=== PATIENT | female | born 1955 | race Caucasian/White ===

== ENCOUNTER 2019-03-18 10:54 | Day surgery (SDC) | payer MEDICARE ==
[~2019-03-18 10:54] MED LIST: KETOROLAC TROMETHAMINE 30 MG/1ML VIAL ONE; LIDOCAINE HCL 2% PF 100MG/5ML VIAL IJ ONE; MIDAZOLAM HCL 2 MG/2 ML VIAL ONE; ONDANSETRON HCL/PF 4 MG/ 2ML VIAL ONE; PROPOFOL 200 MG/20 ML VIAL IV ONE; SEVOFLURANE 250 ML LIQUID IH ONE; ePHEDrine SULFATE 50 MG/1 ML IVP ONE; fentaNYL CITRATE/PF 100 MCG/2 ML INJ. ONE
== END 2019-03-18 13:40 ==
LOC: OPSURG 10:54
PROVIDERS: ATTEND Specialist
DX: M99.05 Segmental and somatic dysfunction of pelvic region (principal); M70.62 Trochanteric bursitis, left hip; M99.06 Segmental and somatic dysfunction of lower extremity; M47.816 Spondylosis without myelopathy or radiculopathy, lumbar region
CPT/HCPCS: 22505; 27275; J1885; J2001; J2250; J2405; J2704; J3010

== ENCOUNTER 2019-03-19 10:49 | Day surgery (SDC) | payer MEDICARE ==
[~2019-03-19 10:49] MED LIST changes: +LACTATED RINGERS 1,000 ML IV.SOLN IV ONE; -MIDAZOLAM HCL 2 MG/2 ML VIAL ONE; -ePHEDrine SULFATE 50 MG/1 ML IVP ONE; -fentaNYL CITRATE/PF 100 MCG/2 ML INJ. ONE
== END 2019-03-19 13:53 | disposition home or self-care (01) ==
LOC: OPSURG 10:49
PROVIDERS: ATTEND Specialist
DX: M99.05 Segmental and somatic dysfunction of pelvic region (principal); M70.62 Trochanteric bursitis, left hip; M99.06 Segmental and somatic dysfunction of lower extremity; M47.816 Spondylosis without myelopathy or radiculopathy, lumbar region
CPT/HCPCS: 22505; 27275; J1885; J2001; J2405; J2704; J7120

== ENCOUNTER 2019-03-20 10:21 | Day surgery (SDC) | payer MEDICARE ==
[~2019-03-20 10:21] MED LIST changes: +fentaNYL CITRATE/PF 100 MCG/2 ML INJ. ONE
== END 2019-03-20 12:25 | disposition home or self-care (01) ==
LOC: OPSURG 10:21
PROVIDERS: ATTEND Specialist
DX: M99.05 Segmental and somatic dysfunction of pelvic region (principal); M70.62 Trochanteric bursitis, left hip; M99.06 Segmental and somatic dysfunction of lower extremity; M47.816 Spondylosis without myelopathy or radiculopathy, lumbar region
CPT/HCPCS: 22505; 27275; J1885; J2001; J2405; J2704; J3010; J7120

== ENCOUNTER 2019-09-01 14:19 | Outpatient (CLI) | payer MEDICARE ==
[~2019-09-01 14:19] MED LIST changes: +BUPIVACAINE HCL 0.5% (5MG/ML) PF 10ML VIAL IV ONE; +IOHEXOL 240 MG/ML BOTTLE 50 ML ONE; -KETOROLAC TROMETHAMINE 30 MG/1ML VIAL ONE; -LACTATED RINGERS 1,000 ML IV.SOLN IV ONE; -LIDOCAINE HCL 2% PF 100MG/5ML VIAL IJ ONE; +Lidocaine 1% 5ml 10 MG/ML VIAL ONE; -ONDANSETRON HCL/PF 4 MG/ 2ML VIAL ONE; -PROPOFOL 200 MG/20 ML VIAL IV ONE; -SEVOFLURANE 250 ML LIQUID IH ONE; +TRIAMCINOLONE ACETONID 40MG/ML VIAL ONE; -fentaNYL CITRATE/PF 100 MCG/2 ML INJ. ONE
== END 2019-09-01 15:25 ==
LOC: OUT 14:19
PROVIDERS: ATTEND Physical Medicine & Rehabilitation
DX: M53.3 Sacrococcygeal disorders, not elsewhere classified (principal)
CPT/HCPCS: 64493; 64494; J3301; J3490